=== PATIENT | female | born 1950 | race Caucasian/White ===

== ENCOUNTER 2020-05-09 18:33 | Inpatient (IN) | payer MEDICARE ==
[2020-05-09] MEDS ORDERED: Ondansetron PF 4 MG/2 ML Vial IVP PRN (23:44)
[2020-05-09] MEDS ORDERED: Senokot S 8.6-50 MG TAB PO PRN (23:44)
[2020-05-09] MEDS ORDERED: Ondansetron ODT 4 MG TAB PO PRN (23:44)
[2020-05-09 23:56] LABS: #Basophils 0.1 thou/uL (0.0-0.2); #Eosinphils 0.3 thou/uL (0.0-0.7); #Lymphocytes 2.6 thou/uL (1.20-3.40); #Monocytes 0.8 thou/uL (0.11-0.59); #Neutrophils 3.6 thou/uL (1.40-6.50); %Basophils 1.6 % (0.0-1.0); %Eosinophils 3.9 % (0.0-10.0); %Lymphocytes 35.4 % (21.0-51.0); %Monocytes 10.2 % (0.0-10.0); %Neutrophils 48.8 % (42.0-75.0); Hemoglobin 11.5 g/dL (12.0-16.0); Mean Corpuscular Hemoglobin 27.1 pg (27.0-31.0); Mean Corpuscular Volume 87.4 fL (78.0-98.0); Mean Platelet Volume 7.6 fL (7.4-10.4); Platelet Count 193 thou/uL (130-400); Red Blood Cell (RBC) Count 4.23 mill/uL (4.20-5.40); White Blood Cell (WBC) Count 7.4 thou/uL (4.8-10.8)
[2020-05-09] MEDS ORDERED: Acetaminophen 500 MG TAB PO SCH (23:59)
[2020-05-09] MEDS ORDERED: Aspirin Chewable 81 MG TAB PO SCH (23:59)
[2020-05-10 00:13] LABS: INR-International Normal Ratio 0.9; PTT 30.9 sec (22.9-36.1); Prothrombin Time 12.7 sec (12.0-14.7)
[2020-05-10 00:23] LABS: Albumin 3.6 g/dL (3.4-4.8)
[2020-05-10 00:24] LABS: Chloride 108 mmol/L (98-107); Potassium 4.3 mmol/L (3.5-5.1); Sodium 139 mmol/L (136-145)
[2020-05-10 00:25] LABS: Calcium 8.8 mg/dL (7.8-10.44); Glucose 98 mg/dL (80-115)
[2020-05-10 00:26] LABS: Globulin 2.8 g/dL (2.4-3.5); Protein, Total 6.4 g/dL (5.8-8.1); Troponin I 1.256 ng/mL (< 0.028)
[2020-05-10 00:27] LABS: Bilirubin, Total 0.4 mg/dL (0.2-1.2); Carbon Dioxide 24 mmol/L (23-31)
[2020-05-10 00:28] LABS: Alkaline Phosphatase 110 U/L (40-110)
[2020-05-10 00:29] LABS: BUN (Urea Nitrogen) 16 mg/dL (9.8-20.1); Calc. Creatinine Clearance 110 mL/min (70-130)
[2020-05-10 00:30] LABS: AST (SGOT) 28 U/L (5-34)
[2020-05-10 00:31] LABS: ALT (SGPT) 22 U/L (8-55)
[2020-05-10] MEDS: Nitroglycerin 2% Ointment 1 INCH/1 GM Packet TOP SCH ×3 (00:32→17:23)
[2020-05-10 00:37] LABS: Anion Gap 11 mmol/L (10-20)
[2020-05-10 05:04] LABS: Cardiac Risk 2.7 (Less than 4.5)
[2020-05-10] MEDS: Lisinopril 20 MG TAB PO SCH ×2 (08:05→21:10)
[2020-05-10] MEDS: Famotidine 20 MG TAB PO SCH ×2 (08:06→21:09)
[2020-05-10] MEDS: Carvedilol 3.125 MG TAB PO SCH ×2 (08:06→17:23)
[2020-05-10] MEDS ORDERED: Iopamidol 370 76% 50 ML VIAL FS ONE (08:56)
[2020-05-10] MEDS ORDERED: Iopamidol 370 76% 100 ML VIAL ONE (08:56)
[2020-05-10] MEDS ORDERED: Aspirin Chewable 81 MG TAB PO SCH (09:00)
[2020-05-10] MEDS ORDERED: FLU VACC QS2020-21(65YR UP)/PF 240 MCG/0.7 ML SYRINGE IM ONE (09:00)
[2020-05-10] MEDS ORDERED: Acetaminophen 325 MG TAB PO PRN (09:07)
[2020-05-10] MEDS ORDERED: Communication Order-Pharmacy FS SCH ×2 (10:00→14:40)
[2020-05-10] MEDS ORDERED: Verapamil 5 MG/2 ML VIAL ONE (12:07)
[2020-05-10] MEDS ORDERED: Heparin 10,000 UNITS/ 10 ML VIAL ONE (12:07)
[2020-05-10] MEDS ORDERED: Nitroglycerin 100MG/250ML BOT 250 ML ONE (12:07)
[2020-05-10] MEDS ORDERED: Midazolam HCl 2 mg/2 ml Vial ONE (12:16)
[2020-05-10] MEDS ORDERED: Nitroglycerin 0.4 MG TAB (25 Tab Bottle) SL PRN (14:35)
[2020-05-10] MEDS ORDERED: Acetaminophen/Codeine 30-300mg Tablet PO PRN ×2 (14:35)
[2020-05-10] MEDS ORDERED: Sodium Chloride 0.9% 200 ML IV PRN (14:35)
[2020-05-10] MEDS ORDERED: Atorvastatin Calcium 40 MG TAB PO SCH (21:00)
[2020-05-10] MEDS: Temazepam 15 MG CAP PO SCH ×2 (21:11→21:15)
[2020-05-10 21:30] LABS: #Basophils 0.1 thou/uL (0.0-0.2); #Eosinphils 0.1 thou/uL (0.0-0.7); #Lymphocytes 1.6 thou/uL (1.20-3.40); #Monocytes 0.5 thou/uL (0.11-0.59); #Neutrophils 4.4 thou/uL (1.40-6.50); %Basophils 0.9 % (0.0-1.0); %Eosinophils 1.6 % (0.0-10.0); %Lymphocytes 23.5 % (21.0-51.0); %Monocytes 7.7 % (0.0-10.0); %Neutrophils 66.3 % (42.0-75.0); Hemoglobin 11.4 g/dL (12.0-16.0); Mean Corpuscular HGB CONC 32.8 g/dL (32.0-36.0); Mean Corpuscular Hemoglobin 28.1 pg (27.0-31.0); Mean Corpuscular Volume 85.9 fL (78.0-98.0); Mean Platelet Volume 7.4 fL (7.4-10.4); Platelet Count 190 thou/uL (130-400); Red Blood Cell (RBC) Count 4.04 mill/uL (4.20-5.40); White Blood Cell (WBC) Count 6.7 thou/uL (4.8-10.8)
[2020-05-10] MEDS ORDERED: Morphine 2 MG/ML VIAL SLOW IVP PRN (21:42)
[2020-05-10 21:50] LABS: ALT (SGPT) 25 U/L (8-55); AST (SGOT) 39 U/L (5-34); Albumin 3.3 g/dL (3.4-4.8); Alkaline Phosphatase 102 U/L (40-110); Anion Gap 11 mmol/L (10-20); BUN (Urea Nitrogen) 17 mg/dL (9.8-20.1); Bilirubin, Total 0.4 mg/dL (0.2-1.2); Calc. Creatinine Clearance 122 mL/min (70-130); Calcium 8.5 mg/dL (7.8-10.44); Carbon Dioxide 23 mmol/L (23-31); Chloride 108 mmol/L (98-107); Glucose 119 mg/dL (80-115); Magnesium 1.9 mg/dL (1.6-2.6); Potassium 4.1 mmol/L (3.5-5.1); Protein, Total 6.3 g/dL (5.8-8.1); Sodium 138 mmol/L (136-145)
[2020-05-10 22:17] LABS: CKMB 1.9 ng/mL (0-6.6)
[2020-05-11] MEDS: Nitroglycerin 2% Ointment 1 INCH/1 GM Packet TOP SCH ×2 (01:20→05:14)
[2020-05-11] MEDS ORDERED: CEFAZOLIN 2 GM in Premix Bag 1 BAG IVPB SCH (05:00)
[2020-05-11] MEDS: Lisinopril 20 MG TAB PO SCH (05:10)
[2020-05-11] MEDS: Carvedilol 3.125 MG TAB PO SCH (05:10)
[2020-05-11] MEDS ORDERED: EPINEPHrine 1 MG/ML AMP ONE (06:31)
[2020-05-11] MEDS ORDERED: Dexamethasone 4 mg/ml Vial ONE (06:31)
[2020-05-11] MEDS ORDERED: Albumin 5% 500 ML ONE ×2 (06:31→06:39)
[2020-05-11] MEDS ORDERED: Bupivacaine PF 0.5% 30 ML VIAL ONE (06:31)
[2020-05-11] MEDS ORDERED: Midazolam HCl 5 mg/5 ml Vial ONE (06:58)
[2020-05-11] MEDS ORDERED: Fentanyl 250 MCG/5 ML VIAL ONE ×2 (06:58→08:41)
[2020-05-11] MEDS ORDERED: Heparin 10,000 UNITS/1 ML VIAL 30,000 UNITS in Sodium Chloride 0.9% 1,000 ML FS SCH (07:00)
[2020-05-11] MEDS ORDERED: Midazolam HCl 2 mg/2 ml Vial ONE ×2 (07:19→08:41)
[2020-05-11] MEDS ORDERED: PHENYLEPHRINE-NS 100 MCG/ML 10 ML SYRINGE ONE ×2 (08:46→10:27)
[2020-05-11] MEDS ORDERED: Calcium Chloride 1 GM/10 ML Abboject SYRINGE ONE (10:19)
[2020-05-11] MEDS ORDERED: Papaverine 60 MG/2 ML VIAL ONE (10:19)
[2020-05-11] MEDS ORDERED: Mannitol 12.5 GM/50 ML ONE (10:19)
[2020-05-11] MEDS ORDERED: Cardioplegic Soln 1,000 ML BAG ONE (10:19)
[2020-05-11] MEDS ORDERED: Heparin 30,000 units/30 ml VIAL ONE (10:19)
[2020-05-11] MEDS ORDERED: Thrombin 5000 UNITS/5 ML VIAL ONE (10:19)
[2020-05-11] MEDS ORDERED: Lidocaine 2% PF 100 mg/5 ml Syringe ONE (10:19)
[2020-05-11] MEDS ORDERED: Ondansetron PF 4 MG/2 ML Vial ONE (10:19)
[2020-05-11] MEDS ORDERED: Magnesium Sulfate 1 GM/2 ML VIAL ONE (10:19)
[2020-05-11] MEDS ORDERED: Sodium Bicarb 50 MEQ/50 ML Abboject 8.4% SYRINGE ONE ×2 (10:19→15:03)
[2020-05-11] MEDS ORDERED: Nitroglycerin 50 MG/250 ML BOT ONE (10:19)
[2020-05-11] MEDS ORDERED: Aminocaproic Acid 5 GM/20 ML VIAL ONE (10:19)
[2020-05-11] MEDS ORDERED: Vecuronium 10 MG VIAL ONE (10:19)
[2020-05-11] MEDS ORDERED: Rocuronium Bromide 10 MG/ML (10ML VIAL) ONE (10:19)
[2020-05-11] MEDS ORDERED: Heparin 5,000 UNITS/ML VIAL ONE (10:19)
[2020-05-11] MEDS ORDERED: Protamine Sulfate 250 MG/25 ML VIAL ONE (10:19)
[2020-05-11] MEDS ORDERED: PROPOFOL 200 MG/20 ML VIAL ONE (10:19)
[2020-05-11] MEDS ORDERED: Potassium Chloride 60 MEQ/30 ML VIAL ONE (10:19)
[2020-05-11] MEDS ORDERED: Hetastarch 6% 500 ML 500 ML IVPB PRN (12:01)
[2020-05-11] MEDS ORDERED: hydrALAZINE 20 MG/ML VIAL SLOW IVP PRN (12:01)
[2020-05-11] MEDS ORDERED: Promethazine HCl 25 MG/ML VIAL IM PRN (12:01)
[2020-05-11] MEDS ORDERED: DOPamine 400 MG/D5W 250 ML 250 ML IVPB PRN (12:01)
[2020-05-11] MEDS ORDERED: Mag-Al 1200 mg/1200 mg/30 ML UDCUP PO PRN (12:01)
[2020-05-11] MEDS ORDERED: Nitroglycerin 50 MG/250 ML BOT 250 ML IVPB PRN (12:01)
[2020-05-11] MEDS ORDERED: Morphine 2 MG/ML VIAL SLOW IVP PRN (12:01)
[2020-05-11] MEDS ORDERED: Ondansetron PF 4 MG/2 ML Vial IVP PRN (12:01)
[2020-05-11] MEDS ORDERED: Fentanyl 100 MCG/2 ML VIAL SLOW IVP PRN (12:01)
[2020-05-11] MEDS ORDERED: niCARdipine 25 MG in Sodium Chloride 0.9% 250 ML 250 ML IVPB PRN (12:01)
[2020-05-11] MEDS ORDERED: Norepinephrine 8 MG/0.9% NS 250 ML IVPB PRN (12:01)
[2020-05-11] MEDS ORDERED: Potassium Chloride 20 MEQ/100 ML PREMIX BAG IVPB PRN (12:01)
[2020-05-11] MEDS ORDERED: Post-Op Insulin Drip Protocol IVPB ONE (12:01)
[2020-05-11] MEDS ORDERED: Bisacodyl 10 MG SUPP PR PRN (12:01)
[2020-05-11] MEDS ORDERED: Magnesium 2 GM/50 ML 2 GM in Premix Bag 1 BAG IVPB SCH (12:01)
[2020-05-11] MEDS ORDERED: Bisacodyl 5 MG TAB PO PRN (12:01)
[2020-05-11] MEDS ORDERED: Guaifenesin DM 100-10/5 ML UDCUP PO PRN (12:01)
[2020-05-11] MEDS ORDERED: Morphine 4 MG/ML VIAL ONE (12:16)
[2020-05-11 12:20] LABS: Actual Bicarbonate (HCO3a) 19.5 mEq/L (22-28); Base Excess (BEa) -5.6 mEq/L (-2.0 to +3.0); CO2 Tension 36.6 mmHg (35.0-45.0); Calcium, Ionized (arterial) 1.18 mmol/L (1.12-1.30); Carboxyhemoglobin (COHb) 0.3 gm% (0.0-3.0); Hemoglobin (Hb) 10.5 g/dL (12.0-16.0); O2 Tension (PaO2), arterial 74.1 mmHg (> 80.0); Potassium - ABG Lab 4.35 mmol/L (3.70-5.30); pH, Arterial 7.34 (7.35-7.45)
[2020-05-11 12:21] LABS: Puncture Site Arterial Line
[2020-05-11] MEDS: Lactated Ringer's 1,000 ML IV SCH (12:30)
[2020-05-11 12:41] LABS: SARS-CoV-2 PCR by NAA Indeterminate (NotDetected)
[2020-05-11 12:41] LABS: INR-International Normal Ratio 1.3; PTT 27.8 sec (22.9-36.1)
[2020-05-11 12:54] LABS: Anion Gap 13 mmol/L (10-20); BUN (Urea Nitrogen) 14 mg/dL (9.8-20.1); Calc. Creatinine Clearance 151 mL/min (70-130); Calcium 7.8 mg/dL (7.8-10.44); Carbon Dioxide 18 mmol/L (23-31); Chloride 112 mmol/L (98-107); Glucose 149 mg/dL (80-115); Potassium 4.3 mmol/L (3.5-5.1); Sodium 139 mmol/L (136-145)
[2020-05-11] MEDS ORDERED: HUMULIN R 100 UNITS in Sodium Chloride 0.9% 100 ML IVPB SCH (13:15)
[2020-05-11] MEDS ORDERED: Dextrose 50% Abboject 50 ML SYRINGE SLOW IVP PRN (13:15)
[2020-05-11] MEDS ORDERED: Insulin Regular 300 UNITS/3 ML VIAL SC PRN (13:15)
[2020-05-11] MEDS ORDERED: Dextrose 5% in Water 1,000 ML IV PRN (13:15)
[2020-05-11 13:17] LABS: #Basophils 0.1 thou/uL (0.0-0.2); #Eosinphils 0.1 thou/uL (0.0-0.7); #Lymphocytes 1.2 thou/uL (1.20-3.40); #Monocytes 0.8 thou/uL (0.11-0.59); #Neutrophils 15.8 thou/uL (1.40-6.50); %Basophils 0.3 % (0.0-1.0); %Eosinophils 0.4 % (0.0-10.0); %Lymphocytes 6.5 % (21.0-51.0); %Monocytes 4.3 % (0.0-10.0); %Neutrophils 88.5 % (42.0-75.0); MDiff Complete? YES; Mean Corpuscular HGB CONC 30.5 g/dL (32.0-36.0); Mean Corpuscular Volume 88.7 fL (78.0-98.0); Mean Platelet Volume 7.7 fL (7.4-10.4); Ovalocytes SLIGHT = 2-5 cells (100X) (0-1/hpf); Platelet Count 137 thou/uL (130-400); Platelet Morphology Comment Appears Adequate; Polychromasia SLIGHT = 2-3 cells (100X) (0-2/hpf); RBC Distribution Width 12.8 % (11.5-14.5); White Blood Cell (WBC) Count 17.9 thou/uL (4.8-10.8)
[2020-05-11] MEDS: CEFAZOLIN 2 GM in Premix Bag 1 BAG IVPB SCH ×2 (14:03→21:24)
[2020-05-11] MEDS: Ketorolac Tromethamine 30 MG/ML VIAL IVP SCH ×2 (14:04→20:50)
[2020-05-11 14:45] LABS: Hemoglobin A1c 5.3 % (4.0-6.0)
[2020-05-11 14:58] LABS: Actual Bicarbonate (HCO3a) 19.7 mEq/L (22-28); Base Excess (BEa) -6.6 mEq/L (-2.0 to +3.0); Calcium, Ionized (arterial) 1.17 mmol/L (1.12-1.30); Carboxyhemoglobin (COHb) 0.4 gm% (0.0-3.0); Hemoglobin (Hb) 10.9 g/dL (12.0-16.0); Potassium - ABG Lab 4.71 mmol/L (3.70-5.30); pH, Arterial 7.29 (7.35-7.45)
[2020-05-11 15:04] LABS: Puncture Site Arterial Line
[2020-05-11 18:14] LABS: Hemoglobin 10.4 g/dL (12.0-16.0)
[2020-05-11 18:32] LABS: Potassium 4.6 mmol/L (3.5-5.1)
[2020-05-11] MEDS: Famotidine/PF 20 mg/2ml Vial SLOW IVP SCH (21:24)
[2020-05-11] MEDS: Atorvastatin Calcium 10 MG TAB PO SCH (21:24)
[2020-05-12] MEDS: Ketorolac Tromethamine 30 MG/ML VIAL IVP SCH ×4 (01:46→20:33)
[2020-05-12] MEDS: Lactated Ringer's 1,000 ML IV SCH ×2 (01:55→15:23)
[2020-05-12 05:07] LABS: Anion Gap 13 mmol/L (10-20); BUN (Urea Nitrogen) 18 mg/dL (9.8-20.1); Calc. Creatinine Clearance 137 mL/min (70-130); Calcium 7.8 mg/dL (7.8-10.44); Carbon Dioxide 22 mmol/L (23-31); Chloride 112 mmol/L (98-107); Glucose 110 mg/dL (80-115); Potassium 4.2 mmol/L (3.5-5.1); Sodium 143 mmol/L (136-145)
[2020-05-12 05:17] LABS: #Lymphocytes 1.3 thou/uL (1.20-3.40); #Monocytes 1.3 thou/uL (0.11-0.59); #Neutrophils 9.7 thou/uL (1.40-6.50); %Basophils 0.2 % (0.0-1.0); %Lymphocytes 10.5 % (21.0-51.0); %Monocytes 10.3 % (0.0-10.0); Mean Corpuscular HGB CONC 30.3 g/dL (32.0-36.0); Mean Corpuscular Hemoglobin 27.4 pg (27.0-31.0); Mean Corpuscular Volume 90.2 fL (78.0-98.0); Mean Platelet Volume 8.1 fL (7.4-10.4); Platelet Count 159 thou/uL (130-400); Red Blood Cell (RBC) Count 3.28 mill/uL (4.20-5.40); White Blood Cell (WBC) Count 12.3 thou/uL (4.8-10.8)
[2020-05-12] MEDS: CEFAZOLIN 2 GM in Premix Bag 1 BAG IVPB SCH (05:38)
[2020-05-12] MEDS: Famotidine/PF 20 mg/2ml Vial SLOW IVP SCH ×2 (08:46→20:36)
[2020-05-12] MEDS ORDERED: Aspirin 325 MG TAB PO SCH (09:00)
[2020-05-12] MEDS: Fentanyl 100 MCG/2 ML VIAL SLOW IVP PRN ×2 (11:26→18:44)
[2020-05-12] MEDS: Atorvastatin Calcium 10 MG TAB PO SCH (20:36)
[2020-05-12] MEDS: HYDROcodone/Acetaminophen 5/325 mg Tablet PO PRN (20:45)
[2020-05-13] MEDS: Ketorolac Tromethamine 30 MG/ML VIAL IVP SCH (02:02)
[2020-05-13] MEDS: HYDROcodone/Acetaminophen 5/325 mg Tablet PO PRN ×2 (03:00→20:35)
[2020-05-13 04:27] LABS: #Basophils 0.1 thou/uL (0.0-0.2); #Lymphocytes 1.5 thou/uL (1.20-3.40); #Monocytes 1.1 thou/uL (0.11-0.59); #Neutrophils 7.1 thou/uL (1.40-6.50); %Basophils 0.5 % (0.0-1.0); %Eosinophils 0.3 % (0.0-10.0); %Lymphocytes 15.3 % (21.0-51.0); %Monocytes 11.1 % (0.0-10.0); %Neutrophils 72.7 % (42.0-75.0); Hemoglobin 7.6 g/dL (12.0-16.0); Mean Corpuscular HGB CONC 30.4 g/dL (32.0-36.0); Mean Corpuscular Hemoglobin 27.6 pg (27.0-31.0); Mean Corpuscular Volume 90.6 fL (78.0-98.0); Mean Platelet Volume 7.8 fL (7.4-10.4); Platelet Count 137 thou/uL (130-400); RBC Distribution Width 13.1 % (11.5-14.5); Red Blood Cell (RBC) Count 2.76 mill/uL (4.20-5.40); White Blood Cell (WBC) Count 9.7 thou/uL (4.8-10.8)
[2020-05-13 04:43] LABS: Anion Gap 8 mmol/L (10-20); BUN (Urea Nitrogen) 20 mg/dL (9.8-20.1); Calc. Creatinine Clearance 132 mL/min (70-130); Calcium 7.5 mg/dL (7.8-10.44); Carbon Dioxide 26 mmol/L (23-31); Chloride 107 mmol/L (98-107); Glucose 113 mg/dL (80-115); Potassium 3.9 mmol/L (3.5-5.1); Sodium 137 mmol/L (136-145)
[2020-05-13 05:32] VITALS: BMI 42.3
[2020-05-13] MEDS ORDERED: Nitroglycerin 0.4 MG TAB (25 Tab Bottle) SL PRN (07:10)
[2020-05-13] MEDS ORDERED: Mineral Oil ENEMA PR PRN (07:10)
[2020-05-13] MEDS: Acetaminophen 325 MG TAB PO PRN ×2 (08:35→11:31)
[2020-05-13] MEDS: Aspirin 325 mg Enteric Coated Tablet PO SCH (08:35)
[2020-05-13] MEDS: Furosemide 40 MG TAB PO SCH ×2 (08:36→19:49)
[2020-05-13] MEDS: Potassium Chloride 20 MEQ TAB PO SCH (08:36)
[2020-05-13] MEDS: Polyethylene Glycol 3350 17 GM Packet PO SCH (08:44)
[2020-05-13] MEDS: Atorvastatin Calcium 10 MG TAB PO SCH (19:48)
[2020-05-14] MEDS: HYDROcodone/Acetaminophen 5/325 mg Tablet PO PRN ×5 (03:21→22:16)
[2020-05-14 05:33] LABS: #Basophils 0.1 thou/uL (0.0-0.2); #Eosinphils 0.3 thou/uL (0.0-0.7); #Lymphocytes 1.4 thou/uL (1.20-3.40); #Monocytes 0.8 thou/uL (0.11-0.59); #Neutrophils 6.4 thou/uL (1.40-6.50); %Basophils 0.7 % (0.0-1.0); %Eosinophils 3.4 % (0.0-10.0); %Lymphocytes 15.5 % (21.0-51.0); %Monocytes 9.3 % (0.0-10.0); %Neutrophils 71.1 % (42.0-75.0); Hemoglobin 7.7 g/dL (12.0-16.0); Mean Corpuscular HGB CONC 30.2 g/dL (32.0-36.0); Mean Corpuscular Hemoglobin 26.9 pg (27.0-31.0); Mean Corpuscular Volume 88.8 fL (78.0-98.0); Platelet Count 150 thou/uL (130-400); RBC Distribution Width 13.3 % (11.5-14.5); Red Blood Cell (RBC) Count 2.85 mill/uL (4.20-5.40)
[2020-05-14] MEDS: Aspirin 325 mg Enteric Coated Tablet PO SCH (08:44)
[2020-05-14] MEDS: Furosemide 40 MG TAB PO SCH ×2 (08:44→20:40)
[2020-05-14] MEDS: Potassium Chloride 20 MEQ TAB PO SCH (08:44)
[2020-05-14] MEDS: Polyethylene Glycol 3350 17 GM Packet PO SCH (08:47)
[2020-05-14] MEDS ORDERED: Ondansetron PF 4 MG/2 ML Vial IVP PRN (11:19)
[2020-05-14] MEDS: Carvedilol 3.125 MG TAB PO SCH (16:21)
[2020-05-14] MEDS: Atorvastatin Calcium 10 MG TAB PO SCH (20:40)
[2020-05-15] MEDS: HYDROcodone/Acetaminophen 5/325 mg Tablet PO PRN ×2 (02:31→11:28)
[2020-05-15 04:49] LABS: Hemoglobin 8.2 g/dL (12.0-16.0); Platelet Count 171 thou/uL (130-400)
[2020-05-15] MEDS: Carvedilol 3.125 MG TAB PO SCH (08:09)
[2020-05-15] MEDS: Furosemide 40 MG TAB PO SCH (08:09)
[2020-05-15] MEDS: Potassium Chloride 20 MEQ TAB PO SCH (08:09)
[2020-05-15] MEDS: Aspirin 325 mg Enteric Coated Tablet PO SCH (08:09)
[2020-05-15] MEDS: Polyethylene Glycol 3350 17 GM Packet PO SCH (08:09)
[2020-05-15 11:27] VITALS: TEMP 97.5
[2020-05-15 13:01] VITALS: BP 136/61
[2020-05-15] MEDS ORDERED: Atorvastatin Calcium 40 MG TAB PO SCH (21:00)
== END 2020-05-15 14:35 | disposition home or self-care (01) | DRG 234 ==
LOC: OBSVTOIN 18:33 → 2NO 18:33 → CCU 05-11 07:43 → 2NO 05-14 12:13
PROVIDERS: ADMIT Internal Medicine; ATTEND Family Medicine
PROC: 4A023N7 Measurement of Cardiac Sampling and Pressure, Left Heart, Percutaneous Approach (ICD-10-PCS; 2020-05-10)
PROC: B2111ZZ Fluoroscopy of Multiple Coronary Arteries using Low Osmolar Contrast (ICD-10-PCS; 2020-05-10)
PROC: B2181ZZ Fluoroscopy of Left Internal Mammary Bypass Graft using Low Osmolar Contrast (ICD-10-PCS; 2020-05-10)
PROC: B2151ZZ Fluoroscopy of Left Heart using Low Osmolar Contrast (ICD-10-PCS; 2020-05-10)
PROC: 4A033BC Measurement of Arterial Pressure, Coronary, Percutaneous Approach (ICD-10-PCS; 2020-05-10)
PROC: 02100Z9 Bypass Coronary Artery, One Artery from Left Internal Mammary, Open Approach (ICD-10-PCS; principal; 2020-05-11)
PROC: 021209W Bypass Coronary Artery, Three Arteries from Aorta with Autologous Venous Tissue, Open Approach (ICD-10-PCS; 2020-05-11)
PROC: 06BQ4ZZ Excision of Left Saphenous Vein, Percutaneous Endoscopic Approach (ICD-10-PCS; 2020-05-11)
PROC: 5A1221Z Performance of Cardiac Output, Continuous (ICD-10-PCS; 2020-05-11)
PROC: 3E033XZ Introduction of Vasopressor into Peripheral Vein, Percutaneous Approach (ICD-10-PCS; 2020-05-11)
DX: I21.4 Non-ST elevation (NSTEMI) myocardial infarction (principal); Z68.41 Body mass index [BMI] 40.0-44.9, adult; I10 Essential (primary) hypertension; E78.5 Hyperlipidemia, unspecified; E66.01 Morbid (severe) obesity due to excess calories; E78.00 Pure hypercholesterolemia, unspecified; I25.10 Atherosclerotic heart disease of native coronary artery without angina pectoris; K21.9 Gastro-esophageal reflux disease without esophagitis; D64.9 Anemia, unspecified; Z79.82 Long term (current) use of aspirin; Z79.899 Other long term (current) drug therapy; Z86.16 Personal history of COVID-19; Z90.49 Acquired absence of other specified parts of digestive tract
CPT/HCPCS: 36415; 36416; 36430; 71045; 76942; 80048; 80053; 80061; 82553; 82805; 83036; 83735; 84484; 85014; 85018; 85025; 85049; 85610; 85730; 86850; 86900; 86901; 87635; 93005; 93010; 93458; 93567; 93798; 94002; 94760; 99152; 99153; J0171; J0690; J1100; J1642; J1644; J1815; J1885; J2001; J2150; J2250; J2270; J2405; J2440; J2704; J2720; J3010; J3370; J3475; J3480; J7030; P9045; Q9967; S0017; S0020; S0028; U0003; U0005

== ENCOUNTER 2020-07-12 16:08 | Outpatient (CLI) | payer MEDICARE ==
[2020-07-12 18:05] LABS: Anion Gap 16 mmol/L (10-20); BUN (Urea Nitrogen) 13 mg/dL (9.8-20.1); Calc. Creatinine Clearance 0 mL/min (70-130); Carbon Dioxide 19 mmol/L (23-31); Chloride 109 mmol/L (98-107); Glucose 88 mg/dL (80-115); Potassium 4.1 mmol/L (3.5-5.1); Sodium 140 mmol/L (136-145)
[2020-07-12 18:35] LABS: Hemoglobin 9.7 g/dL (12.0-15.5); Mean Corpuscular HGB CONC 28.7 g/dL (32.0-36.0); Mean Corpuscular Hemoglobin 23.7 pg (27.0-33.0); Mean Corpuscular Volume 82.6 fl (81.6-98.3); Mean Platelet Volume 9.7 fl (7.4-10.4); Platelet Count 311 10x3/uL (150-450); RBC Distribution Width 14.7 % (11.5-14.5); Red Blood Cell (RBC) Count 4.09 10x6/uL (3.90-5.03); White Blood Cell (WBC) Count 9.3 10x3/uL (3.5-10.5)
[2020-07-13 02:13] LABS: SARS-CoV-2 PCR by NAA Not Detected (NotDetected)
== END 2020-07-12 16:09 | disposition home or self-care (01) ==
LOC: LABBT 16:08
PROVIDERS: ATTEND Thoracic Surgery (Cardiothoracic Vascular Surgery)
DX: Z01.812 Encounter for preprocedural laboratory examination (principal); I21.4 Non-ST elevation (NSTEMI) myocardial infarction; Z20.822 Contact with and (suspected) exposure to COVID-19
CPT/HCPCS: 80048; 85027; U0003; U0005; 87635

== ENCOUNTER 2020-07-14 05:44 | Day surgery (SDC) | payer MEDICARE, OTHER ==
[2020-07-13 11:50] VITALS: BMI 41.3
[2020-07-14] MEDS ORDERED: Neomycin-Polymyxin 1 ML AMP ONE (06:34)
[2020-07-14] MEDS ORDERED: Fentanyl 100 MCG/2 ML VIAL ONE ×2 (06:53→08:50)
[2020-07-14] MEDS ORDERED: Glycopyrrolate 0.2 MG/ML 5 ML SYRINGE ONE (07:42)
[2020-07-14] MEDS ORDERED: Dexamethasone 20 MG/5 ML VIAL ONE (07:42)
[2020-07-14] MEDS ORDERED: Rocuronium Bromide 10 MG/ML (10ML VIAL) ONE (07:42)
[2020-07-14] MEDS ORDERED: Lidocaine 1% PF 5 ML VIAL ONE (07:42)
[2020-07-14] MEDS ORDERED: Ondansetron PF 4 MG/2 ML Vial ONE (07:42)
[2020-07-14] MEDS ORDERED: PROPOFOL 200 MG/20 ML VIAL ONE (07:42)
[2020-07-14] MEDS ORDERED: HYDROcodone/Acetaminophen 5/325 mg Tablet ONE (10:10)
== END 2020-07-14 10:30 | disposition home or self-care (01) ==
LOC: UNDOADMIN 05:44 → SURG A 05:44 → SDC/OP 05:44 → SURG A 05:55 → PREOBSVTOIN 09:06 → UNDODISIN 10:30 → SDC/OP 10:30 → EDSTATUS 16:15
PROVIDERS: ATTEND Thoracic Surgery (Cardiothoracic Vascular Surgery)
PROC: 0JB80ZZ Excision of Abdomen Subcutaneous Tissue and Fascia, Open Approach (ICD-10-PCS; principal; 2020-07-14)
PROC: 0H97XZZ Drainage of Abdomen Skin, External Approach (ICD-10-PCS; 2020-07-14)
DX: S21.109A Unspecified open wound of unspecified front wall of thorax without penetration into thoracic cavity, initial encounter (principal); M79.89 Other specified soft tissue disorders; I25.2 Old myocardial infarction; I10 Essential (primary) hypertension; E78.5 Hyperlipidemia, unspecified; I25.10 Atherosclerotic heart disease of native coronary artery without angina pectoris; Z86.16 Personal history of COVID-19; Z79.82 Long term (current) use of aspirin; Z79.899 Other long term (current) drug therapy; Z95.1 Presence of aortocoronary bypass graft
CPT/HCPCS: 87070; 87077; 87186; 87205; J0690; J1100; J2405; J2704; J3010